=== PATIENT | female | born 1950 | race Asian ===

== ENCOUNTER 2016-12-24 10:34 | Outpatient (CLI) | payer OTHER ==
[2016-12-24 11:59] LABS: POTASSIUM 3.4 mmol/L (3.6-5.2); SODIUM 136 mmol/L (136-145)
== END 2016-12-24 11:35 | disposition home or self-care (01) ==
LOC: LABW 10:34
PROVIDERS: Nurse Practitioner Family
DX: E11.9 Type 2 diabetes mellitus without complications (principal); I10 Essential (primary) hypertension; E78.4 Other hyperlipidemia; E55.9 Vitamin D deficiency, unspecified; R53.83 Other fatigue; Z51.81 Encounter for therapeutic drug level monitoring
CPT/HCPCS: 36415; 80053; 80061; 81000; 82043; 82306; 82570; 82607; 83036; 84439; 84443

== ENCOUNTER 2017-01-14 15:08 | Outpatient (CLI) | payer OTHER | END 2017-01-14 19:14 | disposition home or self-care (01) | LOC: MAMMO 15:08 | DX: Z12.31 Encounter for screening mammogram for malignant neoplasm of breast (principal) ==

== ENCOUNTER 2017-10-13 09:08 | Outpatient (CLI) | payer OTHER, MEDICARE ==
[2017-10-13 09:42] LABS: PLATELET COUNT 284 K/uL (152-353)
[2017-10-13 09:57] LABS: POTASSIUM 3.7 mmol/L (3.6-5.2)
== END 2017-10-13 20:38 | disposition home or self-care (01) ==
LOC: LABW 09:08
PROVIDERS: Nurse Practitioner Family
DX: I10 Essential (primary) hypertension (principal); E11.9 Type 2 diabetes mellitus without complications; Z79.899 Other long term (current) drug therapy; M19.90 Unspecified osteoarthritis, unspecified site; E55.9 Vitamin D deficiency, unspecified; E53.8 Deficiency of other specified B group vitamins
CPT/HCPCS: 36415; 80053; 80061; 81000; 82043; 82306; 82570; 82607; 83036; 84443; 85027

== ENCOUNTER 2018-06-26 14:18 | Outpatient (CLI) | payer OTHER, MEDICARE ==
[2018-06-26 15:32] LABS: PLATELET COUNT 329 K/uL (152-353)
[2018-06-26 16:02] LABS: POTASSIUM 3.6 mmol/L (3.6-5.2)
== END 2018-06-26 23:21 | disposition home or self-care (01) ==
LOC: LABW 14:18
PROVIDERS: Nurse Practitioner Family
DX: E11.9 Type 2 diabetes mellitus without complications (principal); E78.89 Other lipoprotein metabolism disorders; Z51.81 Encounter for therapeutic drug level monitoring; M15.8 Other polyosteoarthritis; I10 Essential (primary) hypertension
CPT/HCPCS: 36415; 80053; 80061; 81000; 82043; 82306; 82570; 83036; 84443; 85027

== ENCOUNTER 2018-07-05 00:34 | Emergency (ER) | payer OTHER, MEDICARE ==
[~2018-07-05] VITALS: Ht 162.6 cm; Wt 73.5 kg
[2018-07-05 02:05] VITALS: BP 182/78; TEMP 98
== END 2018-07-05 02:10 | disposition home or self-care (01) ==
LOC: ED 00:34
DX: S42.402A Unspecified fracture of lower end of left humerus, initial encounter for closed fracture (principal); M25.522 Pain in left elbow; Z91.81 History of falling; S50.311A Abrasion of right elbow, initial encounter; S80.02XA Contusion of left knee, initial encounter; S80.212A Abrasion, left knee, initial encounter; X50.0XXA Overexertion from strenuous movement or load, initial encounter; W01.198A Fall on same level from slipping, tripping and stumbling with subsequent striking against other object, initial encounter; Y92.89 Other specified places as the place of occurrence of the external cause
CPT/HCPCS: 96372; 99282; J1885

== ENCOUNTER 2018-11-13 11:09 | Outpatient (CLI) | payer OTHER, MEDICARE ==
[2018-11-13 12:32] LABS: PLATELET COUNT 334 K/uL (152-353)
[2018-11-13 12:50] LABS: POTASSIUM 3.6 mmol/L (3.6-5.2)
== END 2018-11-13 22:25 | disposition home or self-care (01) ==
LOC: LABW 11:09
PROVIDERS: Nurse Practitioner Family
DX: E55.9 Vitamin D deficiency, unspecified (principal); E11.9 Type 2 diabetes mellitus without complications; I10 Essential (primary) hypertension; Z79.899 Other long term (current) drug therapy; Z51.81 Encounter for therapeutic drug level monitoring
CPT/HCPCS: 36415; 80053; 80061; 81000; 82043; 82306; 82570; 82607; 83036; 84443; 85027

== ENCOUNTER 2019-03-19 09:56 | Outpatient (CLI) | payer OTHER, MEDICARE ==
[2019-03-19 10:16] LABS: PLATELET COUNT 305 K/uL (152-353)
[2019-03-19 10:33] LABS: POTASSIUM 3.5 mmol/L (3.6-5.2)
== END 2019-03-19 19:38 | disposition home or self-care (01) ==
LOC: LABW 09:56
PROVIDERS: Nurse Practitioner Family
DX: E11.9 Type 2 diabetes mellitus without complications (principal); I10 Essential (primary) hypertension; E53.8 Deficiency of other specified B group vitamins; E55.9 Vitamin D deficiency, unspecified; Z79.899 Other long term (current) drug therapy
CPT/HCPCS: 36415; 80053; 80061; 81000; 82043; 82306; 82570; 82607; 83036; 84443; 85027

== ENCOUNTER 2019-07-26 15:55 | Emergency (ER) | payer OTHER, MEDICARE ==
[~2019-07-26] VITALS: Ht 162.6 cm; Wt 73.0 kg
[2019-07-26 17:12] LABS: PLATELET COUNT 350 K/uL (152-353)
[2019-07-26 17:23] LABS: POTASSIUM 3.1 mmol/L (3.6-5.2)
[2019-07-26 19:05] VITALS: BP 126/73; TEMP 98.3
== END 2019-07-26 19:05 | disposition home or self-care (01) ==
LOC: ED 15:55
PROVIDERS: Family Medicine
DX: A08.39 Other viral enteritis (principal); E86.0 Dehydration
CPT/HCPCS: 36415; 80053; 82150; 83605; 83690; 85027; 96360; 96375; 99284; J2405

== ENCOUNTER 2019-10-12 16:50 | Outpatient (CLI) | payer OTHER, MEDICARE ==
[2019-10-12 17:20] LABS: PLATELET COUNT 286 K/uL (152-353)
[2019-10-12 17:51] LABS: POTASSIUM 3.1 mmol/L (3.6-5.2)
== END 2019-10-12 20:36 | disposition home or self-care (01) ==
LOC: LABW 16:50
PROVIDERS: Dermatology Procedural Dermatology
DX: Z79.899 Other long term (current) drug therapy (principal)
CPT/HCPCS: 36415; 80053; 84120; 85027

== ENCOUNTER 2019-10-15 14:36 | Outpatient (CLI) | payer OTHER, MEDICARE | END 2019-10-15 20:46 | disposition home or self-care (01) | LOC: LAB 14:36 | DX: Z79.899 Other long term (current) drug therapy (principal) | CPT/HCPCS: 36415; 82955 ==

== ENCOUNTER 2019-11-02 11:37 | Outpatient (CLI) | payer OTHER, MEDICARE | END 2019-11-02 19:14 | disposition home or self-care (01) | LOC: LAB 11:37 | DX: L43.9 Lichen planus, unspecified (principal) | CPT/HCPCS: 84120 ==

== ENCOUNTER 2019-11-17 11:06 | Outpatient (CLI) | payer OTHER, MEDICARE ==
[2019-11-17 11:28] LABS: PLATELET COUNT 317 K/uL (152-353)
[2019-11-17 12:16] LABS: POTASSIUM 3.5 mmol/L (3.6-5.2)
== END 2019-11-17 19:07 | disposition home or self-care (01) ==
LOC: LABW 11:06
PROVIDERS: Nurse Practitioner Family
DX: E87.6 Hypokalemia (principal); D64.89 Other specified anemias; E11.9 Type 2 diabetes mellitus without complications; E55.9 Vitamin D deficiency, unspecified; Z79.899 Other long term (current) drug therapy
CPT/HCPCS: 36415; 80053; 80061; 81000; 82043; 82306; 82570; 82728; 82746; 83036; 83540; 83550; 85027

== ENCOUNTER 2019-12-17 10:54 | Outpatient (CLI) | payer OTHER, MEDICARE | END 2019-12-17 23:58 | disposition home or self-care (01) | LOC: LABW 10:54 | DX: R79.89 Other specified abnormal findings of blood chemistry (principal) | CPT/HCPCS: 36415; 82043; 82570; 82728; 82747; 83540; 83550 ==

== ENCOUNTER 2020-01-21 11:39 | Outpatient (CLI) | payer OTHER, MEDICARE ==
[2020-01-21 12:18] LABS: POTASSIUM 3.1 mmol/L (3.6-5.2)
[2020-01-21 14:28] LABS: PLATELET COUNT 270 K/uL (152-353)
== END 2020-01-21 18:59 | disposition home or self-care (01) ==
LOC: LABW 11:39
PROVIDERS: ATTEND Nurse Practitioner Family
DX: Z79.899 Other long term (current) drug therapy (principal)
CPT/HCPCS: 36415; 80053; 85027

== ENCOUNTER 2020-05-11 10:42 | Outpatient (CLI) | payer OTHER, MEDICARE ==
[2020-05-11 11:03] LABS: PLATELET COUNT 281 K/uL (152-353)
[2020-05-11 11:14] LABS: POTASSIUM 3.8 mmol/L (3.6-5.2)
== END 2020-05-11 19:33 | disposition home or self-care (01) ==
LOC: LABW 10:42
PROVIDERS: ATTEND Dermatology Procedural Dermatology
DX: Z79.899 Other long term (current) drug therapy (principal)
CPT/HCPCS: 36415; 80053; 85027

== ENCOUNTER 2020-06-08 10:53 | Outpatient (CLI) | payer OTHER, MEDICARE ==
[2020-06-08 11:17] LABS: PLATELET COUNT 278 K/uL (152-353)
[2020-06-08 11:32] LABS: POTASSIUM 4.1 mmol/L (3.6-5.2)
== END 2020-06-08 19:38 | disposition home or self-care (01) ==
LOC: LABW 10:53
PROVIDERS: ATTEND Nurse Practitioner Family
DX: E11.9 Type 2 diabetes mellitus without complications (principal); I10 Essential (primary) hypertension; R53.83 Other fatigue; Z79.899 Other long term (current) drug therapy; E53.8 Deficiency of other specified B group vitamins
CPT/HCPCS: 36415; 80053; 80061; 81000; 82043; 82570; 82607; 83036; 84443; 85027

== ENCOUNTER 2020-07-13 10:49 | Outpatient (CLI) | payer OTHER, MEDICARE ==
[2020-07-13 11:05] LABS: PLATELET COUNT 268 K/uL (152-353)
[2020-07-13 11:17] LABS: POTASSIUM 3.3 mmol/L (3.6-5.2)
== END 2020-07-13 22:00 | disposition home or self-care (01) ==
LOC: LABW 10:49
PROVIDERS: ATTEND Nurse Practitioner Family
DX: L43.8 Other lichen planus (principal)
CPT/HCPCS: 36415; 80053; 85027

== ENCOUNTER 2020-12-08 10:00 | Outpatient (CLI) | payer OTHER, MEDICARE ==
[2020-12-08 10:22] LABS: PLATELET COUNT 290 K/uL (152-353)
[2020-12-08 11:13] LABS: POTASSIUM 3.6 mmol/L (3.6-5.2)
== END 2020-12-08 19:23 | disposition home or self-care (01) ==
LOC: LABW 10:00
PROVIDERS: ATTEND Nurse Practitioner Family
DX: E11.9 Type 2 diabetes mellitus without complications (principal); E78.49 Other hyperlipidemia; I10 Essential (primary) hypertension; E55.9 Vitamin D deficiency, unspecified
CPT/HCPCS: 36415; 80053; 80061; 81000; 82043; 83036; 83735; 84443; 85027

== ENCOUNTER 2021-04-27 09:57 | Outpatient (CLI) | payer OTHER, MEDICARE ==
[2021-04-27 10:31] LABS: PLATELET COUNT 302 K/uL (152-353)
[2021-04-27 11:07] LABS: POTASSIUM 4.4 mmol/L (3.6-5.2)
== END 2021-04-27 21:41 | disposition home or self-care (01) ==
LOC: LABW 09:57
PROVIDERS: ATTEND Nurse Practitioner Family
DX: I10 Essential (primary) hypertension (principal); K21.9 Gastro-esophageal reflux disease without esophagitis; K44.9 Diaphragmatic hernia without obstruction or gangrene; Z78.9 Other specified health status; E11.9 Type 2 diabetes mellitus without complications; E55.9 Vitamin D deficiency, unspecified; R53.83 Other fatigue; Z79.899 Other long term (current) drug therapy
CPT/HCPCS: 36415; 80053; 80061; 81000; 82043; 82306; 82570; 82607; 83036; 83735; 84443; 85027

== ENCOUNTER 2021-09-23 09:51 | Emergency (ER) | payer OTHER, MEDICARE ==
[~2021-09-23] VITALS: Ht 162.6 cm; Wt 67.6 kg
[2021-09-23 09:55] VITALS: TEMP 97
[2021-09-23 10:28] LABS: PLATELET COUNT 309 K/uL (152-353)
[2021-09-23 10:36] LABS: POTASSIUM 3.2 mmol/L (3.6-5.2)
[2021-09-23 12:00] VITALS: BP 132/67
== END 2021-09-23 12:10 | disposition home or self-care (01) ==
LOC: ED 09:51
PROVIDERS: Hospitalist
DX: J06.9 Acute upper respiratory infection, unspecified (principal); U07.1 COVID-19; R19.7 Diarrhea, unspecified; R11.2 Nausea with vomiting, unspecified
CPT/HCPCS: 36415; 80053; 81002; 85027; 96360; 96374; 96375; 99284; J1100; J2405

== ENCOUNTER 2021-12-07 10:22 | Outpatient (CLI) | payer OTHER, MEDICARE ==
[2021-12-07 11:02] LABS: PLATELET COUNT 369 K/uL (152-353)
[2021-12-07 11:19] LABS: POTASSIUM 3.2 mmol/L (3.6-5.2)
== END 2021-12-07 18:52 | disposition home or self-care (01) ==
LOC: LABW 10:22
PROVIDERS: ATTEND Nurse Practitioner Family
DX: E11.9 Type 2 diabetes mellitus without complications (principal); I10 Essential (primary) hypertension; K21.9 Gastro-esophageal reflux disease without esophagitis; L43.8 Other lichen planus; Z79.899 Other long term (current) drug therapy
CPT/HCPCS: 36415; 80053; 80061; 81002; 82043; 82570; 82607; 83036; 83735; 84443; 85027

== ENCOUNTER 2022-03-05 14:04 | Outpatient (CLI) | payer OTHER, MEDICARE ==
[2022-03-05 14:33] LABS: PLATELET COUNT 320 K/uL (152-353)
[2022-03-05 15:10] LABS: POTASSIUM 3.8 mmol/L (3.6-5.2)
== END 2022-03-05 19:19 | disposition home or self-care (01) ==
LOC: LABW 14:04
PROVIDERS: ATTEND Nurse Practitioner Family
DX: I10 Essential (primary) hypertension (principal); K21.9 Gastro-esophageal reflux disease without esophagitis; E87.6 Hypokalemia; Z79.899 Other long term (current) drug therapy; E11.9 Type 2 diabetes mellitus without complications; E55.9 Vitamin D deficiency, unspecified; R19.7 Diarrhea, unspecified
CPT/HCPCS: 36415; 80053; 80061; 81002; 82043; 82272; 82306; 82607; 83036; 83630; 83735; 84443; 85027; 87015; 87045; 87324; 87328; 87329; 87338; 87449; 87899

== ENCOUNTER 2022-06-14 10:24 | Outpatient (CLI) | payer OTHER, MEDICARE ==
[2022-06-14 10:53] LABS: PLATELET COUNT 299 K/uL (152-353)
[2022-06-14 11:51] LABS: POTASSIUM 3.5 mmol/L (3.6-5.2)
== END 2022-06-14 19:36 | disposition home or self-care (01) ==
LOC: LABW 10:24
PROVIDERS: ATTEND Nurse Practitioner Family
DX: I10 Essential (primary) hypertension (principal); K21.9 Gastro-esophageal reflux disease without esophagitis; E87.6 Hypokalemia; Z79.899 Other long term (current) drug therapy; Z78.9 Other specified health status; E11.9 Type 2 diabetes mellitus without complications; L43.9 Lichen planus, unspecified
CPT/HCPCS: 36415; 80053; 80061; 81002; 82043; 82570; 82607; 83036; 83735; 84443; 85027

== ENCOUNTER 2022-12-03 09:09 | Outpatient (CLI) | payer OTHER, MEDICARE ==
[2022-12-03 09:36] LABS: PLATELET COUNT 310 K/uL (152-353)
[2022-12-03 09:51] LABS: POTASSIUM 3.6 mmol/L (3.6-5.2)
== END 2022-12-03 18:59 | disposition home or self-care (01) ==
LOC: LABW 09:09
PROVIDERS: ATTEND Nurse Practitioner Family
DX: I10 Essential (primary) hypertension (principal); K21.9 Gastro-esophageal reflux disease without esophagitis; E87.6 Hypokalemia; Z79.899 Other long term (current) drug therapy; Z78.9 Other specified health status; E11.9 Type 2 diabetes mellitus without complications; L43.8 Other lichen planus; E55.9 Vitamin D deficiency, unspecified
CPT/HCPCS: 36415; 80053; 80061; 81002; 82043; 82306; 82570; 82607; 83036; 83735; 84443; 85027